=== PATIENT | female | born 1990 | race American Indian/Alaskan Native ===

== ENCOUNTER 2017-09-20 10:57 | Emergency (ER) | payer SELFPAY ==
[2017-09-20 11:56] LABS: Basophils % (Auto) 0.7 % (0.0-1.8); Eosinophils # (Auto) 0.2 K/mm3 (0.0-0.4); Eosinophils % (Auto) 2.8 % (0.0-4.3); Hematocrit 33.1 % (30.3-42.9); Hemoglobin 10.7 gm/dl (10.1-14.3); Lymphocytes % (Auto) 34.3 % (13.4-35.0); Mean Corpuscular HGB Conc 32 % (30-34); Monocytes # (Auto) 0.5 K/mm3 (0.0-0.8); Monocytes % (Auto) 8.4 % (0.0-7.3); Platelet Count 313 K/mm3 (140-440); Red Blood Count 5.04 M/mm3 (3.65-5.03); Red Cell Distribution Width 17.3 % (13.2-15.2)
[2017-09-20 11:57] LABS: Mean Corpuscular Hemoglobin 21 pg (28-32); Mean Corpuscular Volume 66 fl (79-97)
[2017-09-20 11:58] LABS: Bacteria,Urine 1+ /HPF (Negative); Bilirubin,Urine NEG (Negative); Blood,Urine NEG (Negative); Color,Urine Yellow (Yellow); Mucus,Urine FEW /HPF; Nitrite,Urine NEG (Negative); Protein,Urine <15 mg/dL mg/dL (Negative); Urobilinogen,Urine < 2.0 mg/dL (<2.0)
[2017-09-20 12:01] LABS: HCG Qualitative,Urine Negative (Negative)
[2017-09-20 12:01] LABS: BUN/Creatinine Ratio 11; Blood Urea Nitrogen 9 mg/dL (7-17); Calcium 9.3 mg/dL (8.4-10.2); Hemolysis Index 0
--- NOTE | 2017-09-20 12:03 | Emergency Department Report ---
ED Chest Pain HPI - General Chief Complaint: High BP Stated Complaint: HIGH BLOOD PRESSURE Time Seen by Provider: 09/20/17 11:44 Source: patient Mode of arrival: Ambulatory Limitations: No Limitations - History of Present Illness Initial Comments: Ms. Bauer is a 26 yo female with hx of hypertension. SHe has not taken any medications in several years. She had adverse effects of dizziness. She did not like how the medications made her feel. She has had chest pressure and dyspnea for several years. Mild in severity. No pain currently. She was referred from Clinic for severe HTN. She was being evaluated for several concerns including toothache, flu-like illness and referral for mammogram. MD Complaint: chest pain -: Gradual, year(s) (several years) Onset: during rest, during exertion Pain Location: left chest Pain Radiation: none Severity: mild Quality: pressure Consistency: now resolved Worsens With: other (she feels the pressures mainly when she is working) Treatments Prior to Arrival: none - Related Data Previous Rx's Medication Instructions Recorded Last Taken Type Hydrochlorothiazide [HCTZ] 25 mg PO QDAY 30 Days #30 tablet 09/20/17 Unknown Rx amLODIPine [Norvasc] 5 mg PO DAILY 30 Days #30 tab 09/20/17 Unknown Rx Allergies Allergy/AdvReac Type Severity Reaction Status Date / Time No Known Allergies Allergy Unverified 09/20/17 11:12 Heart Score - HEART Score History: Slightly suspicious EKG: Normal Age: < 45 Risk factors: 1-2 risk factors Troponin: < normal limit HEART Score: 1 ED Review of Systems ROS: Stated complaint: HIGH BLOOD PRESSURE Other details as noted in HPI Comment: All other systems reviewed and negative Constitutional: denies: weakness Respiratory: denies: cough Cardiovascular: chest pain. denies: palpitations, edema, syncope ED Past Medical Hx - Past Medical History Previous Medical History?: Yes Hx Hypertension: Yes (no tx. no meds) - Surgical History Past Surgical History?: No - Social History Smoking Status: Never Smoker Substance Use Type: Alcohol, Non Opiate Pain - Medications Home Medications: Home Medications Medication Instructions Recorded Confirmed Last Taken Type Hydrochlorothiazide [HCTZ] 25 mg PO QDAY 30 Days #30 tablet 09/20/17 Unknown Rx amLODIPine [Norvasc] 5 mg PO DAILY 30 Days #30 tab 09/20/17 Unknown Rx ED Physical Exam - General Limitations: No Limitations General appearance: alert, in no apparent distress - Head Head exam: Present: atraumatic, normocephalic - Eye Eye exam: Present: normal appearance - ENT ENT exam: Present: normal orophraynx ( tooth decay at tooth #14 no fluctuance no bleeding), mucous membranes moist - Neck Neck exam: Present: normal inspection. Absent: tenderness, meningismus - Respiratory Respiratory exam: Present: normal lung sounds bilaterally. Absent: respiratory distress, wheezes, rales, rhonchi - Cardiovascular Cardiovascular Exam: Present: regular rate, normal rhythm, normal heart sounds. Absent: systolic murmur, diastolic murmur, rubs, gallop - GI/Abdominal GI/Abdominal exam: Present: soft, normal bowel sounds. Absent: distended, tenderness, guarding, rebound - Extremities Exam Extremities exam: Present: normal inspection - Back Exam Back exam: Present: normal inspection - Neurological Exam Neurological exam: Present: alert, oriented X3 - Psychiatric Psychiatric exam: Present: normal affect, normal mood - Skin Skin exam: Present: warm, dry, intact, normal color. Absent: rash ED Course Vital Signs 09/20/17 09/20/17 09/20/17 11:12 12:12 12:31 Temperature 98.8 F Pulse Rate 66 61 Respiratory 20 18 20 Rate Blood Pressure 200/109 156/83 O2 Sat by Pulse 99 100 Oximetry ED Medical Decision Making - Lab Data Result diagrams: 09/20/17 11:31 09/20/17 11:31 Abnormal Lab Results 09/20/17 09/20/17 09/20/17 11:24 11:31 11:31 WBC 5.8 RBC 5.04 H Hgb 10.7 Hct 33.1 MCV 66 L MCH 21 L MCHC 32 RDW 17.3 H Plt Count 313 Lymph % (Auto) 34.3 [place] % (Auto) 8.4 H Eos % (Auto) 2.8 Baso % (Auto) 0.7 Lymph # 2.0 [place] # 0.5 Eos # 0.2 Baso # 0.0 Seg Neutrophils % 53.8 Seg Neutrophils # 3.1 Sodium 138 Potassium 4.1 Chloride 100.0 Carbon Dioxide 27 Anion Gap 15 BUN 9 Creatinine 0.8 Estimated GFR > 60 BUN/Creatinine Ratio 11 Glucose 95 Calcium 9.3 Urine Color Yellow Urine Turbidity Clear Urine pH 5.0 Ur Specific [place] 1.023 Urine Protein <15 mg/dl Urine Glucose (UA) Neg Urine Ketones Neg Urine Blood Neg Urine Nitrite Neg Urine Bilirubin Neg Urine Urobilinogen < 2.0 Ur Leukocyte Esterase Neg Urine WBC (Auto) 4.0 Urine RBC (Auto) 4.0 U Epithel Cells (Auto) 1.0 Urine Bacteria (Auto) 1+ Urine Mucus Few Urine HCG, Qual Negative Vital Signs - 24 hr 09/20/17 11:12 Temperature 98.8 F Pulse Rate 66 Respiratory 20 Rate Blood Pressure 200/109 O2 Sat by Pulse 99 Oximetry - EKG Data EKG shows normal: sinus rhythm, axis, intervals, QRS complexes, ST-T waves ( rate 60 bpm) Rate: normal (60 bpm) - Medical Decision Making Ms. Bauer presents with hypertensive urgency due to medical noncompliance for chest pressure and shortness of breath likely related to blood pressure versus severe obesity. Patient's weight is approximately 250 pounds. She has small amount of tooth decay without evidence of dental infection. I have referred her to clinic for referral for mammogram and management hypertension. I will prescribed amlodipine and hydrochlorothiazide. I also recommended multivitamin for mild iron deficiency anemia No evidence of end organ damage due to hypertension. No indication of ACS, cardiomyopathy, kidney disease. Critical care attestation.: If time is entered above; I have spent that time in minutes in the direct care of this critically ill patient, excluding procedure time. ED Disposition Clinical Impression: Hypertensive urgency, malignant, Chest pressure, Dental caries Disposition: TO HOME OR SELFCARE Is pt being admited?: No Does the pt Need Aspirin: No Condition: Stable Instructions: Hypertension (ED) Prescriptions: amLODIPine [Norvasc] 5 mg PO DAILY 30 Days #30 tab Hydrochlorothiazide [HCTZ] 25 mg PO QDAY 30 Days #30 tablet Referrals: [facility] [Outside] - 3-5 Days
--- NOTE | 2017-09-20 12:50 | XRay Report ---
PORTABLE CHEST INDICATION: Chest pressure, dyspnea, hypertension. COMPARISON: None similar at this institution. FINDINGS: Portable, frontal chest radiograph suggests mild cardiomegaly. Normal mediastinal and hilar contours. Right hemidiaphragm slightly elevated. Otherwise clear lungs. EKG leads. Intact bones. CONCLUSION: Slight cardiomegaly, as described. Thank you for the opportunity to participate in this patient's care.
[2017-09-20 15:03] VITALS: BP 156/100
== END 2017-09-20 13:47 | disposition home or self-care (01) ==
LOC: ED 10:57
DX: I16.0 Hypertensive urgency (principal); R07.9 Chest pain, unspecified; K02.9 Dental caries, unspecified; I10 Essential (primary) hypertension
CPT/HCPCS: 36415; 71045; 80048; 81001; 81025; 83880; 85025; 93005; 93010